=== PATIENT | female | born 2000 | race African-American/Black ===

== ENCOUNTER 2022-01-22 23:43 | Emergency (ER) | payer OTHER ==
[2022-01-22 23:52] VITALS: BP 119/75; PULSE 87; RESP 18; TEMP 98.4; BMI 18.7
[2022-01-23] MEDS ORDERED: IBUPROFEN 600 MG TABLET (FP) PO ONE (00:21)
[2022-01-23] MEDS ORDERED: IBUPROFEN 400 MG TABLET (FP) PO ONE (00:49)
== END 2022-01-23 02:36 | disposition home or self-care (01) ==
LOC: JER 23:43
DX: M25.561 Pain in right knee (principal)
CPT/HCPCS: 73564-TC-RT-FY; 93971-TC; 99284-25

== ENCOUNTER 2022-08-15 09:29 | Emergency (ER) | payer OTHER ==
[2022-08-15 09:39] VITALS: RESP 18; BMI 17.2
[2022-08-15] MEDS ORDERED: IBUPROFEN 400 MG TABLET (FP) PO ONE ×2 (10:13→10:15)
[2022-08-15] MEDS ORDERED: ACETAMINOPHEN 1000 MG/100 ML BAG IVPB ONE (12:58)
[2022-08-15] MEDS ORDERED: LIDOCAINE 5% TOPICAL PATCH TP ONE (12:58)
[2022-08-15] MEDS ORDERED: ACETAMINOPHEN INJECTION 100 ML IVPB ONE (13:42)
[2022-08-15] MEDS ORDERED: LIDOCAINE 5% TOPICAL PATCH ONE (13:42)
[2022-08-15] MEDS ORDERED: ACETAMINOPHEN 325 MG TABLET (FP) ONE (13:51)
[2022-08-15] MEDS ORDERED: ACETAMINOPHEN 500 MG TABLET (FP) PO ONE (14:00)
[2022-08-15 14:45] LABS: BASO % 0.3 % (0-2.0); EOS % 0.8 % (0-4.5); HEMATOCRIT 37.1 % (32.4-45.2); HEMOGLOBIN 12.4 GM/dL (10.7-15.3); LYMPH % 17.9 % (8-40); MCH 30.3 pg (25.7-33.7); MCHC 33.6 g/dl (32.0-36.0); MEAN CELL VOLUME 90.2 fl (80-96); MEAN PLT VOLUME 8.5 fl (7.5-11.1); MONO % 6.8 % (3.8-10.2); NEUT % 74.2 % (42.8-82.8); PLATELET COUNT 250 10^3/uL (134-434); RBC 4.11 M/mm3 (3.60-5.2); RDW 13.2 % (11.6-15.6); WHITE BLOOD COUNT 6.7 K/mm3 (4.0-10.0)
[2022-08-15 15:06] LABS: CHLORIDE 106 mmol/L (98-107); SODIUM 139 mmol/L (136-145)
[2022-08-15 15:08] LABS: CALCIUM 9.5 mg/dL (8.5-10.1)
[2022-08-15 15:09] LABS: ALBUMIN 4.4 g/dl (3.4-5.0); ANION GAP 8 MMOL/L (8-16); CO2 26 mmol/L (21-32); GLUCOSE,RANDOM 108 mg/dL (74-106)
[2022-08-15 15:12] LABS: CREATININE 0.7 mg/dL (0.55-1.3); SGOT/AST 33 U/L (15-37); SGPT/ALT 28 U/L (13-61)
[2022-08-15 15:14] LABS: BILIRUBIN,TOTAL 0.4 mg/dL (0.2-1)
[2022-08-15 15:15] LABS: ALK PHOS 65 U/L (45-117)
[2022-08-15 15:29] VITALS: BP 98/60; PULSE 80; TEMP 97.8
[2022-08-15] MEDS ORDERED: LIDOCAINE PATCH REMOVAL MC SCH (22:00)
== END 2022-08-15 15:30 | disposition home or self-care (01) ==
LOC: JER 09:29
DX: M79.601 Pain in right arm (principal)
CPT/HCPCS: 36415; 71046-TC-FY; 80053; 84484; 85025; 85379; 99284-25

== ENCOUNTER 2023-05-23 10:15 | Emergency (ER) | payer OTHER ==
[2023-05-23 10:24] VITALS: BP 110/64; PULSE 74; RESP 18; TEMP 98.3; BMI 18.3
[2023-05-23] MEDS ORDERED: RABIES VACCINE (PCEC)/PF 2.5 UNIT/VIAL IM ONE ×2 (11:57→12:09)
[2023-05-23] MEDS ORDERED: RABIES IMMUNE GLOBULIN 300 UNITS/1 ML VIAL IM ONE (11:57)
[2023-05-23] MEDS ORDERED: RABIES IMMUNE GLOBULIN 300 UNITS/1 ML VIAL ONE (12:09)
== END 2023-05-23 13:28 | disposition home or self-care (01) ==
LOC: JERFT 10:15
PROC: 3E0234Z Introduction of Serum, Toxoid and Vaccine into Muscle, Percutaneous Approach (ICD-10-PCS; principal; 2023-05-23)
PROC: 3E0234Z Introduction of Serum, Toxoid and Vaccine into Muscle, Percutaneous Approach (ICD-10-PCS; 2023-05-23)
DX: S61.051D Open bite of right thumb without damage to nail, subsequent encounter (principal); S61.052D Open bite of left thumb without damage to nail, subsequent encounter; Z20.3 Contact with and (suspected) exposure to rabies; W54.0XXD Bitten by dog, subsequent encounter
CPT/HCPCS: 90375; 90675; 99284-25